=== PATIENT | male | born 1940 | race Caucasian/White ===

== ENCOUNTER 2019-08-15 08:15 | Inpatient (IN) | payer MEDICARE, BC ==
[~2019-08-15] VITALS: Ht 177.8 cm; Wt 118.4 kg
[~2019-08-15 08:15] MED LIST: AVELOX 400MG T400 MG PO; AZULFIDINE500 MG/TAB PO; BUMEX 1MG TA1 MG/TA1 PO; BUMEX2 MG PO; COREG 25MG25 MG/TAB PO; COUMADIN 1MG1 MG/TAB PO; COUMADIN 5MG5 MG/TAB PO; COUMADIN4 MG PO; DILTIAZEM CD240 MG PO; ENULOSE10 GM/151 PO; FENTANYL 50MCG TOP; FERROUS SU325 MG/TAB PO; FOLIC ACID 11 MG/TA1 PO; FOLIC ACID 40400 MCG PO; IPRATROPIUM BROM3 M1 IH; LACTULOSE SYRUP1 ML PO; LASIX 40MG TABL40 MG PO; LEVAQUIN 750MG750 M1 PO; LEVAQUIN 750MG750 MG PO; LIPITOR 10MG10 MG PO; LUTEIN20 M1 PO; METHOTREXA50 MG/2 ML; MUCINEX 60600 MG/TAB PO; MULTI VITAMINS1 TAB PO; MULTIPLE VITAMI1 CAP PO; OMEGA 31000 MG PO; OMEPRAZOLE DR20 MG PO; PERCOCET 325 MG1 TA2 PO; PREDNISONE 5MG5 MG PO; PREDNISONE20 MG PO; PRINIVIL40 MG PO; PROAIR HFA0.09 MG/AC IH; PROTONIX 40MG T40 MG PO; PULMICORT0.25 MG/2 IH; SENNA-GEN8.6 MG PO; SIMVASTATIN40 MG PO; SOTALOL80 MG PO; TRIAMCINOLONE A15 G3 TP; VICODIN PO; VITAMIN; VITAMIN C500 MG PO; ZANTAC 150MG T150 MG PO; ZAROXOLYN 2.52.5 MG PO; ZEAXANTHIN; [UNRECOGNIZED DRUG - OTHER] TOP
[2019-08-15 08:55] LABS: INR 2.4 (0.8-3.0); PROTHROMBIN TIME 26.6 SECONDS (9.7-12.8)
[2019-08-15 08:57] LABS: BASO % 0.3 % (0.0-2.0); EOS % 0.1 % (0-4.0); GRAN # 10.2 (1.4-6.5); GRAN % 88.9 % (42.2-75.2); HEMOGLOBIN 11.4 g/dl (13.5-18.0); LYMPH # 0.5 (1.2-3.4); LYMPH % 4.3 % (20.0-51.0); MEAN CELL VOLUME 93 fl (80.0-100.0); MEAN CORPUSCULAR HEMOGLOBIN 29 pg (27.0-31.0); MEAN CORPUSCULAR HGB CONC 31 g/dl (33.0-37.0); MEAN PLATELET VOLUME 9.8 fl (7.4-10.4); MONO # 0.7 (0.1-0.6); MONO % 5.9 % (1.7-9.3); PLATELET COUNT 243 K/mm3 (130-400); RED BLOOD COUNT 3.92 M/mm3 (4.20-5.60)
[2019-08-15 08:58] LABS: HEMATOCRIT 36.3 % (42.0-52.0)
[2019-08-15 09:03] LABS: ALBUMIN 4.1 gm/dL (3.5-5.0); BILIRUBIN,TOTAL 0.8 mg/dL (0.0-1.0); CALCIUM 9.3 mg/dL (8.4-10.2); CREATININE, serum 1.16 (0.66-1.25); POTASSIUM 4.1 mmol/L (3.4-5.0); TOTAL PROTEIN 7.7 gm/dL (6.4-8.2)
[2019-08-15 10:11] LABS: TROPONIN-I 0.069 ng/mL (0.000-0.035)
--- NOTE | 2019-08-15 13:00 | NUR ---
PT ARRIVED TO FLOOR AT THIS TIME. HE IS STABLE AND STATES THAT HE FEELS GOOD. HE IS REALLY JUST HUNGRY. HE DOES HAVE A MINOR COUGH BUT DENIES SHORTNESS OF BREATH AT THIS TIME. DENIES PAIN. ASSESSMENT COMPLETE. PT IS COMFORTABLE AND AWARE THAT THE HOSPITALIST MUST SEE HIM PRIOR TO EATING. NO OTHER NEEDS WILL CONTINUE TO MONITOR.
--- NOTE | 2019-08-15 14:45 | NUR ---
MDI NOT GIVEN BECAUSE MED HAD NOT BEEN BROUGHT UP BY PHARMACY YET.
[2019-08-15 16:07] VITALS: BP 102/46; PULSE 58; TEMP 97
--- NOTE | 2019-08-15 19:19 | NUR ---
PT HAS BEEN STABLE SINCE ARRIVING. VITALS STABLE. LUNG SOUNDS DIMINISHED IN BASES WITH EXPIRATORY WHEEZES. MEDICATIONS WERE DISCUSSED. CONTACTED [facility] FOR A MEDLIST PT DID NOT HAVE IT WITH HIM. STILL DENIES CHEST PAIN AND SOB. NO PAIN AT ALL. INDEPENDENT IN ROOM. CALL LIGHT IN REACH.
[2019-08-15 20:14] VITALS: PULSE 63; TEMP 98.4
[2019-08-15 20:16] VITALS: BP 130/54
--- NOTE | 2019-08-15 20:30 | NUR ---
Initial shift assessment done- denies pain, states is feeling better, o2 at 3L/nc, sats 96%, Up to bathroom, steady on feet, voiding without problems, Tele on-afib
[2019-08-16 00:38] VITALS: BP 104/50; PULSE 62; TEMP 98.4
[2019-08-16 03:29] VITALS: BP 123/85; PULSE 60; TEMP 98.5
--- NOTE | 2019-08-16 04:44 | NUR ---
Has not slept much last night- states he doesnt usually sleep much- has been sitting at edge of bed most of the night, INT fell out on last trip to the bathroom, new INT started by roundhouse worker Marcelino WISEMAN to right hand/wrist area.
[2019-08-16 07:12] LABS: HEMOGLOBIN 10.9 g/dl (13.5-18.0); MEAN CELL VOLUME 94 fl (80.0-100.0); MEAN CORPUSCULAR HEMOGLOBIN 29 pg (27.0-31.0); MEAN CORPUSCULAR HGB CONC 31 g/dl (33.0-37.0); MEAN PLATELET VOLUME 9.7 fl (7.4-10.4); PLATELET COUNT 251 K/mm3 (130-400); RED BLOOD COUNT 3.77 M/mm3 (4.20-5.60); REDCELL DISTRIBUTION WIDTH-CV 15.8 % (11.5-14.5)
[2019-08-16 07:16] LABS: HEMATOCRIT 35.5 % (42.0-52.0)
[2019-08-16 07:20] LABS: INR 2.9 (0.8-3.0); PROTHROMBIN TIME 33.2 SECONDS (9.7-12.8)
[2019-08-16 07:26] LABS: CALCIUM 8.9 mg/dL (8.4-10.2); CREATININE, serum 1.18 (0.66-1.25); POTASSIUM 4.4 mmol/L (3.4-5.0)
[2019-08-16 08:03] LABS: LYMPHOCYTE 4 % (20.0-51.0); NEUTROPHILS 91 % (42.0-75.2); PLATELET ESTIMATE NORMAL (NORMAL)
[2019-08-16 08:05] LABS: ANISOCYTOSIS 1+
[2019-08-16 08:06] VITALS: BP 131/60; PULSE 62; TEMP 98.5
--- NOTE | 2019-08-16 08:12 | NUR ---
Patient alert and oriented. complain of pain on right chest radiating to right shoulder at 06/29. pain started on 08/14 before he was admitted. patient said the pain has decreased compared to the time of admission.
[2019-08-16 12:30] VITALS: BP 125/50; PULSE 59; TEMP 98.3
--- NOTE | 2019-08-16 13:51 | NUR ---
SW contacted the patient's , Celeste (ph#[phone]), to discuss discharge plan. The patient lives in [place] with his . Celeste reports that the patient is independent with ADLs and has a cane and rolaider. The patient's PCP is Dr. Patt Headley and he receives his medications at [facility]. Celeste reports no difficulties obtaining his meds. The patient's advanced directives are in EMR. His DPOA-HC is his and daughters: Cyndee Alberto and Romina Valenzuela. Celeste reports that the plan is for the patient to return back home with her upon discharge. The patient is currently requiring oxygen. SW to continue to monitor.
[2019-08-16 16:16] VITALS: BP 130/56; PULSE 62; TEMP 97.4
--- NOTE | 2019-08-16 18:58 | NUR ---
COVID19 result came back negative. patient loss IV site today, Patient state he would rather not have another one inserted. O2 was titrated down to room air. Patient had some SOB after ambulating to Bathroom. O2 was titred from RA to 1L.
--- NOTE | 2019-08-16 20:00 | NUR ---
Pt. sitting up in bed at this time. Pt. is A&OX3, assessment complete. Pt. dyspnic after going to the bathroom, put on 1 L, nc to help with recovery. Pt. denies pain or other needs, call light within reach.
[2019-08-16 20:10] VITALS: BP 102/60; PULSE 68; TEMP 99.8
[2019-08-17 00:55] VITALS: BP 142/63; PULSE 59; TEMP 98.3
[2019-08-17 05:44] VITALS: BP 126/63; PULSE 59; TEMP 97.9
[2019-08-17 08:14] LABS: BASO % 0.1 % (0.0-2.0); EOS % 0.1 % (0-4.0); GRAN # 11.8 (1.4-6.5); GRAN % 83.6 % (42.2-75.2); HEMOGLOBIN 10.8 g/dl (13.5-18.0); LYMPH % 7.3 % (20.0-51.0); MEAN CELL VOLUME 95 fl (80.0-100.0); MEAN CORPUSCULAR HEMOGLOBIN 29 pg (27.0-31.0); MEAN CORPUSCULAR HGB CONC 31 g/dl (33.0-37.0); MEAN PLATELET VOLUME 9.3 fl (7.4-10.4); MONO # 1.2 (0.1-0.6); MONO % 8.4 % (1.7-9.3); PLATELET COUNT 268 K/mm3 (130-400); RED BLOOD COUNT 3.72 M/mm3 (4.20-5.60); REDCELL DISTRIBUTION WIDTH-CV 15.8 % (11.5-14.5)
[2019-08-17 08:19] LABS: HEMATOCRIT 35.2 % (42.0-52.0)
[2019-08-17 08:22] LABS: INR 3.4 (0.8-3.0); PROTHROMBIN TIME 38.5 SECONDS (9.7-12.8)
[2019-08-17 08:24] LABS: CALCIUM 8.7 mg/dL (8.4-10.2); CREATININE, serum 1.17 (0.66-1.25); POTASSIUM 4.4 mmol/L (3.4-5.0)
[2019-08-17 08:42] VITALS: BP 136/101; PULSE 60; TEMP 98.2
--- NOTE | 2019-08-17 09:24 | NUR ---
PT SITTING AT EDGE OF BED EATING BREAKFAST. LUNGS SOUNDS COARSE THROUGHOUT. DENIES PAIN OR DISCOMFORT, COMMERCIAL CREDIT SPECIALIST REPORTED CONCERNS OF OXYGEN NEEDS AT NIGHT POTENTIAL EXERCISE OXIMETRY NEEDED. NO OTHER NEEDS AT THIS TIME.
[2019-08-17] MEDS ORDERED: ZITHROMAX500 M2 PO (11:53)
[2019-08-17] MEDS ORDERED: PREDNISONE20 MG PO (11:59)
[2019-08-17] MEDS ORDERED: PROAIR HFA0.09 MG/AC IH (12:00)
--- NOTE | 2019-08-17 12:24 | NUR ---
First visit from the licensed esthetician. No needs right now.
[2019-08-17 12:40] VITALS: BP 132/78; PULSE 62; TEMP 99
--- NOTE | 2019-08-17 13:22 | NUR ---
PATIENT REQUIRES 2 LPM WHILE AMBULATING AND ONE LPM AT REST.
--- NOTE | 2019-08-17 13:56 | NUR ---
An exercise oximetry was ordered and the patient qualified for two liters of oxygen. STERLING met with the patient and his to discuss this and the patient and his chose [facility]. STERLING contacted and faxed the patient's oxygen order to Chaparrita at [facility]. The patient is to discharge back home with his today, 08/16. Awaiting delivery of oxygen.
[2019-08-17 15:45] VITALS: BP 142/63; PULSE 62; TEMP 97.7
--- NOTE | 2019-08-17 17:05 | NUR ---
PT ESCORTED OUT OF HOSPITAL WITH VIA WHEELCHAIR. PT BELONGINGS CARRIED OUT WELL. PT ASSISTED INTO CAR ALONG WITH PERSONAL OXYGEN TANK. DISCHARGE TEACHING PROVIDED, TELE DISCONTINUED, NO OTHER NEEDS AT THIS TIME.
== END 2019-08-17 17:06 | disposition home or self-care (01) | DRG 280 ==
LOC: COL.ER 08:15 → PEDS 09:21 → MEDICAL 08-16 13:24 → PEDS 08-16 13:24 → MEDICAL 08-16 13:24
PROVIDERS: Emergency Medicine; Physician Assistant; Student in an Organized Health Care Education/Training Program; ADMIT Hospitalist
DX: I11.0 Hypertensive heart disease with heart failure (principal); J96.01 Acute respiratory failure with hypoxia; I21.A1 Myocardial infarction type 2; J44.1 Chronic obstructive pulmonary disease with (acute) exacerbation; I50.23 Acute on chronic systolic (congestive) heart failure; E78.5 Hyperlipidemia, unspecified; I48.91 Unspecified atrial fibrillation; Z20.828 Contact with and (suspected) exposure to other viral communicable diseases; D63.8 Anemia in other chronic diseases classified elsewhere; R73.9 Hyperglycemia, unspecified; M06.9 Rheumatoid arthritis, unspecified; K21.9 Gastro-esophageal reflux disease without esophagitis; Z79.01 Long term (current) use of anticoagulants; Z95.810 Presence of automatic (implantable) cardiac defibrillator; Z85.038 Personal history of other malignant neoplasm of large intestine
CPT/HCPCS: 99222-AI; 99232-AI; 99239; J1940; J2920; J2930; J3475; J7512

== ENCOUNTER 2019-08-27 14:25 | Inpatient (IN) | payer MEDICARE, BC ==
[~2019-08-27] VITALS: Ht 177.8 cm; Wt 113.2 kg
[~2019-08-27 14:25] MED LIST changes: +ZITHROMAX500 M2 PO
[2019-08-27 14:50] LABS: HEMOGLOBIN 11.3 g/dl (13.5-18.0); MEAN CELL VOLUME 93 fl (80.0-100.0); MEAN CORPUSCULAR HEMOGLOBIN 29 pg (27.0-31.0); MEAN CORPUSCULAR HGB CONC 31 g/dl (33.0-37.0); MEAN PLATELET VOLUME 9.7 fl (7.4-10.4); PLATELET COUNT 224 K/mm3 (130-400); RED BLOOD COUNT 3.91 M/mm3 (4.20-5.60); REDCELL DISTRIBUTION WIDTH-CV 16.5 % (11.5-14.5)
[2019-08-27 14:59] LABS: HEMATOCRIT 36.3 % (42.0-52.0)
[2019-08-27 15:03] LABS: ARTERIAL BLD GAS O2 SATURATION 98.9 % (92-100); ARTERIAL BLD GAS TCO2 CT 33.4; ARTERIAL BLOOD GAS BASE EXCESS 6.2 (-2-2); ARTERIAL BLOOD GAS HCO3 31.9 meq/L (22-26); ARTERIAL BLOOD GAS PCO2 50.3 mmHg (35-45); ARTERIAL BLOOD GAS pH 7.42 (7.35-7.45)
[2019-08-27 15:03] LABS: ALBUMIN 3.9 gm/dL (3.5-5.0); BILIRUBIN,TOTAL 0.9 mg/dL (0.0-1.0); CALCIUM 8.8 mg/dL (8.4-10.2); CREATININE, serum 1.2 (0.66-1.25); POTASSIUM 4.2 mmol/L (3.4-5.0); TOTAL PROTEIN 7.2 gm/dL (6.4-8.2)
[2019-08-27 15:04] LABS: ARTERIAL BLOOD GAS PO2 144.7 mmHg (80-100)
[2019-08-27 15:05] LABS: INR 2.7 (0.8-3.0); PROTHROMBIN TIME 30.7 SECONDS (9.7-12.8)
[2019-08-27 15:13] LABS: TROPONIN-I 0.079 ng/mL (0.000-0.035)
[2019-08-27 15:14] LABS: C-REACTIVE PROTEIN 18.5 mg/dL (0.0-0.9)
[2019-08-27 15:42] LABS: BAND 2 % (0-10); EOSINOPHIL 1 % (0-4); LYMPHOCYTE 1 % (20.0-51.0); NEUTROPHILS 95 % (42.0-75.2); PLATELET ESTIMATE NORMAL (NORMAL)
[2019-08-27 15:43] LABS: ANISOCYTOSIS 1+
[2019-08-27 16:56] VITALS: BP 118/48; TEMP 100.1
[2019-08-27 20:27] VITALS: BP 118/60; PULSE 60; TEMP 97.7
[2019-08-28 00:13] VITALS: BP 118/64; PULSE 60; TEMP 97.9
[2019-08-28 04:27] VITALS: BP 114/66; PULSE 60; TEMP 97.8
[2019-08-28 07:11] LABS: MEAN CELL VOLUME 93 fl (80.0-100.0); MEAN CORPUSCULAR HEMOGLOBIN 29 pg (27.0-31.0); MEAN CORPUSCULAR HGB CONC 32 g/dl (33.0-37.0); MEAN PLATELET VOLUME 9.7 fl (7.4-10.4); PLATELET COUNT 168 K/mm3 (130-400); REDCELL DISTRIBUTION WIDTH-CV 16.2 % (11.5-14.5)
[2019-08-28 07:19] LABS: INR 2.8 (0.8-3.0); PROTHROMBIN TIME 31.6 SECONDS (9.7-12.8)
[2019-08-28 07:29] LABS: HEMATOCRIT 31.5 % (42.0-52.0)
[2019-08-28 07:34] LABS: CALCIUM 8.5 mg/dL (8.4-10.2); CREATININE, serum 1.09 (0.66-1.25)
[2019-08-28 08:07] VITALS: BP 136/68; PULSE 61; TEMP 98
[2019-08-28 08:32] LABS: ANISOCYTOSIS 1+; BAND 5 % (0-10); NEUTROPHILS 91 % (42.0-75.2); PLATELET ESTIMATE NORMAL (NORMAL); TOXIC GRANULATION PRESENT
[2019-08-28 12:24] VITALS: BP 148/85; PULSE 60; TEMP 98.1
[2019-08-28 17:01] VITALS: BP 152/86; PULSE 60
[2019-08-28 20:30] VITALS: BP 114/78; PULSE 60; TEMP 97.9
[2019-08-29 00:33] VITALS: BP 138/85; PULSE 72; TEMP 97.8
[2019-08-29 04:53] VITALS: BP 140/71; PULSE 63; TEMP 98.1
[2019-08-29 06:10] LABS: HEMOGLOBIN 10.2 g/dl (13.5-18.0); MEAN CELL VOLUME 92 fl (80.0-100.0); MEAN CORPUSCULAR HEMOGLOBIN 29 pg (27.0-31.0); MEAN CORPUSCULAR HGB CONC 32 g/dl (33.0-37.0); MEAN PLATELET VOLUME 9.8 fl (7.4-10.4); PLATELET COUNT 202 K/mm3 (130-400); RED BLOOD COUNT 3.51 M/mm3 (4.20-5.60); REDCELL DISTRIBUTION WIDTH-CV 16.4 % (11.5-14.5)
[2019-08-29 06:16] LABS: HEMATOCRIT 32.4 % (42.0-52.0)
[2019-08-29 06:24] LABS: CALCIUM 8.6 mg/dL (8.4-10.2); CHOLESTEROL RISK RATIO 3.9; CREATININE, serum 1.33 (0.66-1.25)
[2019-08-29 06:32] LABS: TROPONIN-I 0.058 ng/mL (0.000-0.035)
[2019-08-29 07:23] LABS: BAND 7 % (0-10); LYMPHOCYTE 4 % (20.0-51.0); NEUTROPHILS 88 % (42.0-75.2); PLATELET ESTIMATE NORMAL (NORMAL)
[2019-08-29 07:31] VITALS: BP 139/76; PULSE 60; TEMP 98.1
[2019-08-29 11:29] VITALS: BP 116/90; PULSE 47; TEMP 97.5
[2019-08-29 15:49] VITALS: BP 146/67; PULSE 59; TEMP 97.8
[2019-08-29 19:37] VITALS: BP 117/57; PULSE 59; TEMP 98.4
[2019-08-30 01:10] VITALS: BP 120/64; PULSE 63; TEMP 97.7
[2019-08-30 04:29] VITALS: BP 128/63; PULSE 64; TEMP 97.6
[2019-08-30 07:03] LABS: BASO % 0.1 % (0.0-2.0); EOS % 0.3 % (0-4.0); GRAN # 9.5 (1.4-6.5); GRAN % 84.7 % (42.2-75.2); HEMOGLOBIN 10.1 g/dl (13.5-18.0); MEAN CELL VOLUME 94 fl (80.0-100.0); MEAN CORPUSCULAR HEMOGLOBIN 30 pg (27.0-31.0); MEAN CORPUSCULAR HGB CONC 31 g/dl (33.0-37.0); MEAN PLATELET VOLUME 9.7 fl (7.4-10.4); MONO # 0.6 (0.1-0.6); MONO % 5.5 % (1.7-9.3); PLATELET COUNT 216 K/mm3 (130-400); RED BLOOD COUNT 3.42 M/mm3 (4.20-5.60); REDCELL DISTRIBUTION WIDTH-CV 16.5 % (11.5-14.5)
[2019-08-30 07:07] LABS: HEMATOCRIT 32.3 % (42.0-52.0)
[2019-08-30 07:30] LABS: CALCIUM 8.5 mg/dL (8.4-10.2); CREATININE, serum 1.37 (0.66-1.25); POTASSIUM 3.9 mmol/L (3.4-5.0)
[2019-08-30 07:40] VITALS: BP 161/85; PULSE 59; TEMP 97.5
[2019-08-30 11:03] VITALS: BP 153/75; PULSE 59; TEMP 98.7
[2019-08-30] MEDS ORDERED: PROAIR HFA0.09 MG/AC IH (12:40)
[2019-08-30] MEDS ORDERED: PREDNISONE20 MG PO (12:42)
[2019-08-30] MEDS ORDERED: LEVAQUIN 5500 MG/TA1 PO (12:43)
== END 2019-08-30 17:00 | disposition home or self-care (01) | DRG 871 ==
LOC: COL.ER 14:25 → MEDICAL 15:06
PROVIDERS: Emergency Medicine; Hospitalist; Physician Assistant; ADMIT Internal Medicine
DX: A41.9 Sepsis, unspecified organism (principal); J18.9 Pneumonia, unspecified organism; J96.01 Acute respiratory failure with hypoxia; I21.A1 Myocardial infarction type 2; I50.22 Chronic systolic (congestive) heart failure; J44.0 Chronic obstructive pulmonary disease with (acute) lower respiratory infection; E87.3 Alkalosis; E87.1 Hypo-osmolality and hyponatremia; J44.1 Chronic obstructive pulmonary disease with (acute) exacerbation; I42.9 Cardiomyopathy, unspecified; I47.2 Ventricular tachycardia; N17.9 Acute kidney failure, unspecified; J94.9 Pleural condition, unspecified; E78.5 Hyperlipidemia, unspecified; I11.0 Hypertensive heart disease with heart failure; I48.91 Unspecified atrial fibrillation; E11.65 Type 2 diabetes mellitus with hyperglycemia; Z20.828 Contact with and (suspected) exposure to other viral communicable diseases; I08.1 Rheumatic disorders of both mitral and tricuspid valves; M06.9 Rheumatoid arthritis, unspecified; E66.9 Obesity, unspecified; D64.9 Anemia, unspecified; K21.9 Gastro-esophageal reflux disease without esophagitis; R53.81 Other malaise; Z79.01 Long term (current) use of anticoagulants; Z79.52 Long term (current) use of systemic steroids; Z79.891 Long term (current) use of opiate analgesic; Z95.810 Presence of automatic (implantable) cardiac defibrillator; Z85.038 Personal history of other malignant neoplasm of large intestine; Z87.891 Personal history of nicotine dependence
CPT/HCPCS: 99223-AI; 99232-AI; 99239; J1815; J2543; J2930; J7030; J7512

== ENCOUNTER → 2019-12-08 | Outpatient (CLI) | payer MEDICARE, BC ==
[~2019-12-08] MED LIST changes: +GLUCOPHAGE500 MG/TAB PO; +LEVAQUIN 5500 MG/TA1 PO
== END ==
LOC: COL.RAD 13:30
DX: N28.1 Cyst of kidney, acquired (principal); N20.0 Calculus of kidney